=== PATIENT | male | born 1985 | race Hispanic/Latino ===

== ENCOUNTER 2019-05-27 10:40 | Inpatient (IN) ==
[2019-05-27] MEDS ORDERED: MOTRIN PO ONE (10:55)
--- NOTE | 2019-05-27 11:28 | PROVIDER DOCUMENTATION ---
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) Allergies/Adverse Reactions: Patient Allergies Allergy/AdvReac Type Severity Reaction Status Date / Time No Known Allergies Allergy Verified 05/27/19 13:28 Home Medications: Home Medication List Medication Instructions Recorded Confirmed Last Taken Type Acetaminophen [Tylenol] 650 mg PO Q6H PRN PRN #60 tab 05/27/19 Unknown Rx Azithromycin [Zithromax] 1 gm PO DAILY #1 packet 05/27/19 Unknown Rx Amoxicillin/Potassium Clav 1 ea PO BID 7 Days #14 tab 05/28/19 Unknown Rx [Augmentin 875-125 Tablet] - History of Present Illness-Resp Nature of Presenting Problem: This is a 33 yo male who presents with fever, chills, cough that started 3 days ago. 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 He denies any kn own sick contacts. Quality of Pain: reports: none Severity in ED: reports: moderate Onset/Duration: reports: 2 days ago Timing: reports: still present Context: denies: recent foreign travel, insect bite (possible tick) Exposure: denies: unknown cause, illness exposure Cough Quality/Degree: reports: mild, productive cough Episode Frequency: no prior episodes Current Respiratory Medication Therapy: Initiated none Modifying Factors: improves with: nothing Associated Symptoms: reports: cough, fever/chills, headache, muscle/bodyaches, shortness of breath Similar Symptoms Previously?: No Recently seen or treated by another doctor?: No Review of Systems - Adult - REVIEW OF SYSTEMS - ADULT Constitutional: reports: chills, fever Eyes: reports: no symptoms reported Ears, Nose, Mouth & Throat: reports: no symptoms reported, sinus problem (fulln ess). denies: ear discharge, ear pain, epistaxis, hoarseness, throat swelling Cardiovascular: reports: no symptoms reported. denies: chest pain, heart murmur, irregular heart rate, palpitations Respiratory: reports: no symptoms reported. denies: excessive sputum production, hemoptysis Gastrointestinal: reports: no symptoms reported. denies: abdominal pain, diarrhea, nausea, vomiting Genitourinary: reports: no symptoms reported Musculoskeletal: reports: no symptoms reported Integumentary: reports: no symptoms reported Neurological: reports: no symptoms reported Psychiatric: reports: no symptoms reported Endocrine: reports: no symptoms reported Hematologic/Lymphatic: reports: no symptoms reported Allergic/Immunologic: reports: no symptoms reported All Other Systems: Reviewed and Negative Past History - Adult - PAST MEDICAL HISTORY-ADULT Review of Records: reports: Old Records Reviewed, Nursing Assessment Review, Medications Reviewed, Social history reviewed & non-contributory. Major Childhood Illnesses: reports: denies history Cardiovascular: reports: denies history Respiratory: reports: denies history Gastrointestinal: reports: denies history Obstetrical/Gynecological: reports: denies history Genitourinary: reports: denies history Musculoskeletal: reports: denies history Neurological: reports: denies history Psychiatric: reports: denies history Endocrine/Immune: reports: denies history Other Conditions: reports: denies history Physical Exam-General - PHYSICAL EXAM-ADULT Initial Vital Signs Reviewed: Yes - CONSTITUTIONAL General Appearance: appears well, alert - EYES Eyes: PERRL/EOMI, pink conjunctivae - HEAD, EARS, NOSE, MOUTH & THROAT HENMT: normocephalic/atraumatic, moist mucous membranes, normal ENT inspection - NECK Neck: non-tender, supple - RESPIRATORY Respiratory: lungs clear, rhonchi - CARDIOVASCULAR Cardiovascular: normal peripheral pulses, regular rate, rhythm, no edema - GASTROINTESTINAL (ABDOMEN) Abdominal Exam: normal bowel sounds, non tender, soft, no organomegaly - MUSCULOSKELETAL Back Exam: no CVA tenderness, no vertebral tenderness Extremity: normal gait, no pedal edema - SKIN Integumentary: normal color, warm/dry - NEUROLOGIC Neurologic: grossly normal - PSYCHIATRIC Psych/Mental Status: normal mood/affect Progress - PLAN OF CARE/RESULTS Progress/Plan/Lab Results: Laboratory Results - last 24 hr 05/27/19 19:14 Plasma Lactate 1.4 Orders Category Date Time Status Admit - [facility] Routine AdmDCTranf 05/27/19 21:03 Active Activity - Up Ad Krystal ORDERED Care 05/27/19 21:03 Completed Cardiac Monitoring NOW Care 05/27/19 10:55 Completed IV Insertion NOW Care 05/27/19 10:55 Completed Intake and Output-Strict ORDERED Care 05/27/19 21:03 Completed Isolation [Isolation Precautions Setup] NOW Care 05/27/19 21:03 Completed NEWS Score >or=5:Order NEWS Bundle S.O. NOW Care 05/27/19 10:54 Completed Notify Provider of NEWS Score NOW Care 05/27/19 10:55 Completed Vital Signs Order Q 4-HR ASSESS Care 05/27/19 21:03 Completed Z-Document. for Tele Applied ORDERED Care 05/27/19 21:03 Completed Regular Diet Diet 05/27/19 18:41 Completed Regular Diet Diet 05/27/19 21:03 Completed CHEST-1 VIEW [RAD] Stat Exams 05/27/19 10:55 Completed A1C HGB W EST AVG GLUCOSE [CHEM] Stat Lab 05/27/19 11:10 Completed BASIC METABOLIC PANEL [CHEM] Routine Lab 05/28/19 06:25 Completed BLOOD CULTURE [BLDCUL] Stat Lab 05/27/19 11:14 Results CBC WITH DIFF [HEME] Routine Lab 05/28/19 06:25 Completed CBC WITH DIFF [HEME] Stat Lab 05/27/19 11:10 Completed CK PROFILE [SP CHEM] Stat Lab 05/27/19 11:10 Completed COMPREHENSIVE METABOLIC PANEL [CHEM] Stat Lab 05/27/19 11:10 Completed DIRECT STREP Stat Lab 05/27/19 11:42 Completed DIRECT STREP Stat Lab 05/27/19 18:26 Completed INFLUENZA SCREEN A/B Stat Lab 05/27/19 11:10 Completed LACTATE, PLASMA [CHEM] Lab 05/27/19 14:11 Completed LACTATE, PLASMA [CHEM] Lab 05/27/19 19:14 Completed LACTATE, PLASMA [CHEM] Q3H Lab 05/27/19 11:10 Completed PROTIME WITH INR [COAG] Stat Lab 05/27/19 11:10 Completed PTT [COAG] Stat Lab 05/27/19 11:10 Completed TROPONIN T HIGH SENSITIVITY Stat Lab 05/27/19 11:10 Completed URINALYSIS W/POSS RFLX CULT [URINALYSIS] Stat Lab 05/27/19 11:50 Completed URINE MANUAL MICROSCOPIC [URINALYSIS] Stat Lab 05/27/19 11:50 Completed 0.9% Sodium Chloride Inj [Ns] 1,000 ml Med 05/27/19 21:03 Discontinued IV 75 mls/hr 0.9% Sodium Chloride Inj [Ns] 1,000 ml Med 05/27/19 12:43 Discontinued IV 999 mls/hr Acetaminophen [Tylenol] Med 05/27/19 21:03 Discontinued 650 mg PO Q6H PRN PRN Amoxicillin/Pot Clavulanate [Augmentin] Med 05/27/19 17:58 Discontinued 500 mg PO NOW ONE Azithromycin 500 mg/Ns [Zithromax 500 mg/Ns] Med 05/27/19 21:03 Discontinued 500 mg in 250 ml IV Q24H CefTRIAXONE [Rocephin] 1 gm Med 05/27/19 14:00 Discontinued 0.9% Sodium Chloride Inj [Ns] 50 ml IV Q24H CefTRIAXONE [Rocephin] 1 gm Med 05/28/19 15:00 Discontinued 0.9% Sodium Chloride Inj [Ns] 50 ml IV Q24H Ibuprofen [Motrin] Med 05/27/19 10:55 Discontinued 800 mg PO NOW ONE Ondansetron [Zofran] Med 05/27/19 21:03 Discontinued 4 mg IV Q4H PRN PRN O2 Per Protocol Stat Oth 05/27/19 10:55 Active Telemetry [OM.EQ] Routine Oth 05/27/19 21:03 Active Transfer/Admit Order [TRANSFER] Routine Transfer 05/27/19 18:12 Completed Reviewed labs and pt exam with Dr Haile.WIll DC pt with Z pack Result Diagrams: 05/28/19 06:25 05/28/19 06:25 - REASSESSMENT Reassessment #1 Status: worsening (Temp increased to 103. Will admit) Departure - Departure Date of Disposition Decision: 05/27/19 Time of Disposition Decision: 16:17 DIAGNOSIS: Upper respiratory infection, viral, Coronavirus infection, unspecified Fever Qualifiers: Fever type: due to other condition Qualified Code(s): R50.81 - Fever presenting with conditions classified elsewhere Disposition: HOME 01 Certified Medical Emergency: Emergent Condition: Good - Critical Care Note This patient required my direct & personal management of CC.: Yes Total Time (mins): 55 Critical Care Statement: This patient required my direct personal management to treat or rule out processes, the absence of which, could potentiallly result in sudden, clinically significant life or limb threatening deterioration. Attestation - Physician/ [facility] Attestation Patient care was provided by Advanced Practice Provider:: Yes Advanced Practice Provider:: Katherin Rubio Advanced Practice Provider documentation review:: The Mid-level provider documentation, treatment plan and medical decision making was reviewed by the physician who agrees with all treatment and medical decision making by the MLP. The physician spent face to face time with patient:: No Advanced Practice Provider documentation review:: Supervising physician onsite and consulted in the evaluation and care of this patient. The physician did not have a face to face encounter with the patient.
[2019-05-27 11:30] LABS: BASO# 0.01 X1000 (0.0-0.2); BASO% 0.1 % (0.0-0.8); HEMATOCRIT 43.4 % (42.0-52.0); IMM GRAN# 0.12 X1000 (0.0-0.04); IMM GRAN% 0.7 % (0.0-0.5); LYMPH# 1.21 X1000 (1.2-3.4); LYMPH% 6.8 % (20.5-51.1); MCH 29.9 PG (27-31); MCHC 34.6 g/dL (33-37); MCV 86.6 FL (81-99); MONO# 1.67 X1000 (0.11-0.59); MONO% 9.4 % (1.7-9.3); MPV 10.2 FL (7.4-10.4); NEUT# 14.74 X1000 (1.4-6.5); PLT 201 X1000 (130-400); RBC 5.01 XMIL (4.7-6.1); RDW 13.7 % (11.5-14.5); WBC 17.75 X1000 (4.8-10.8)
[2019-05-27 11:41] LABS: INR 1.01; PROTIME 13.4 Seconds (11.0-16.0)
[2019-05-27 11:42] LABS: PTT 31.6 Seconds (22.3-41.8)
--- NOTE | 2019-05-27 11:46 | Diag Imaging Result Doc PS360 ---
EXAM: CHEST-1 VIEW INDICATION: cough TECHNIQUE: One view COMPARISON: None. FINDINGS: Inspiration is suboptimal. The lungs are grossly clear. There is no discrete pleural fluid collection or pneumothorax. The cardiomediastinal silhouette and central vasculature are grossly unremarkable. IMPRESSION: No evidence of acute pathology by plain radiograph. Electronically signed by Otilio Capone 05/27/2019 11:44 AM
[2019-05-27 11:54] LABS: URINE SOURCE CLEAN CATCH
[2019-05-27 12:02] LABS: BILIRUBIN URINE NEGATIVE (NEGATIVE); BLOOD URINE MODERATE (NEGATIVE); COLOR YELLOW; GLUCOSE URINE NEGATIVE (NEGATIVE); KETONE URINE 20 mg/dL (NEGATIVE); LEUKOCYTES URINE NEGATIVE (NEGATIVE); NITRITE URINE NEGATIVE (NEGATIVE); PH URINE 6.5; PROTEIN URINE 300 mg/dL (NEGATIVE); SP GRAVITY URINE 1.036; TURBIDITY URINE CLEAR (CLEAR); UROBILINOGEN URINE 4 mg/dL (NORMAL)
[2019-05-27 12:04] LABS: AGAP 16; ALB/GLOB RATIO 1.1; ALBUMIN 4.1 g/dL (3.5-5.0); ALKALINE PHOSPHATASE 77 U/L (32-122); BUN 11 mg/dL (8-22); CHLORIDE 97 mmol/L (98-107); CK PROFILE 126 U/L (24-204); COSMO 267; CREATININE 0.8 mg/dL (0.7-1.2); ESTIMATED GFR > 60; GLUCOSE 126 mg/dL (70-104); GOT 37 U/L (10-34); GPT 64 U/L (10-44); POTASSIUM 4.2 mmol/L (3.5-5.1); SODIUM 133 mmol/L (136-145); TCO2 20 mmol/L (25-35); TOTAL BILIRUBIN 0.51 mg/dL (0.20-1.00); TOTAL PROTEIN 7.9 g/dL (6.3-8.3)
[2019-05-27 12:10] LABS: UR EPITHELIAL CELLS <10 /HPF (<10); URINE BACTERIA NEGATIVE /HPF; URINE RBC <10 /HPF (<10); URINE WBC <10 /HPF (<10)
[2019-05-27 12:19] LABS: URINE CRYSTALS NONE SEEN; URINE YEAST NONE SEEN
[2019-05-27] MEDS ORDERED: NS 1,000 ML IV ONE (12:43)
[2019-05-27] MEDS ORDERED: ROCEPHIN 1 GM in NS 50 ML IV SCH ×2 (14:00→21:03)
[2019-05-27 17:46] LABS: HEMOGLOBIN A1C 5.2 % (4.8-6.0)
[2019-05-27] MEDS ORDERED: AUGMENTIN PO ONE (17:58)
--- NOTE | 2019-05-27 19:07 | HISTORY AND PHYSICAL ---
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 He states that for a couple days he has had symptoms but now he says he gets these type of symptoms as he has had trouble with his tonsils since he has been a young boy. His throat is sore. His tonsils do look like they are inflamed and he felt like he had some fever and indeed he had a temperature of 103 degrees on presentation here. He denies any other past medical history or surgical history. No known drug allergies. Denies any nausea, vomiting or GI symptoms. Denies productive cough. On his exam, his lungs are clear. He has no cervical, supraclavicular, axillary or femoral adenopathy. Conjunctiva unremarkable. His oropharynx is peritonsillar erythema and swelling. Abdomen is soft. Skin is warm and dry. Neck is supple. VITAL SIGNS: Temperature was 103 degrees, pulse 115, respirations 16, blood pressure 140/88. Pupils are equal and round. Neck is supple. Height 5 feet 5 inches, weight 180 pounds. LAB: White count 17,750, hematocrit 43, platelet count 201,000. Sodium 133, potassium 4.2, chloride 97, BUN 11, creatinine 0.8, blood sugar 126. Hemoglobin A1c is 5.2. Liver functions unremarkable. Pro time 13.4, PTT is 31. Urinalysis unremarkable and his chest x-ray, no evidence of any infiltrates or pathology. ASSESSMENT/PLAN: I suspect he has got a tonsillitis. We will give him some Rocephin. We will admit him for observation. I think he has concern that his symptoms could be coronavirus so we will get swabs and send for influenza and leija but I do not think he has a viral. I think this is more consistent with tonsillitis and so will give him ceftriaxone 1 g q.24 hours, he is on Motrin, give him some normal saline. 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 I did explain that the results of the coronavirus will not be back probably till Wednesday. Clinically low suspicion for coronavirus but want him to take precautions and probably need to wear a mask but will plan on admitting him and observing him overnight. cc: Roque Sullivan MD
[2019-05-27] MEDS ORDERED: ZOFRAN IV PRN (21:03)
[2019-05-27] MEDS ORDERED: ZITHROMAX 500 MG/NS 500 MG/250 ML IVPB IV SCH (21:03)
[2019-05-27] MEDS ORDERED: NS 1,000 ML IV SCH (21:03)
[2019-05-28] MEDS: TYLENOL PO PRN ×2 (01:22→09:56)
[2019-05-28 07:09] LABS: BASO# 0.01 X1000 (0.0-0.2); BASO% 0.1 % (0.0-0.8); EOS# 0.01 X1000 (0.0-0.7); EOS% 0.1 % (0.0-10.0); HEMATOCRIT 41.8 % (42.0-52.0); HEMOGLOBIN 14.1 g/dL (14.0-18.0); IMM GRAN# 0.03 X1000 (0.0-0.04); IMM GRAN% 0.2 % (0.0-0.5); LYMPH# 2.23 X1000 (1.2-3.4); LYMPH% 18.4 % (20.5-51.1); MCH 29.6 PG (27-31); MCHC 33.7 g/dL (33-37); MCV 87.6 FL (81-99); MONO# 2.03 X1000 (0.11-0.59); MONO% 16.8 % (1.7-9.3); MPV 10.7 FL (7.4-10.4); NEUT# 7.79 X1000 (1.4-6.5); NEUT% 64.4 % (42.2-75.2); PLT 203 X1000 (130-400); RBC 4.77 XMIL (4.7-6.1); RDW 13.7 % (11.5-14.5)
[2019-05-28 07:21] LABS: AGAP 12; BUN 11 mg/dL (8-22); CALCIUM 8.7 mg/dL (8.8-10.2); CHLORIDE 102 mmol/L (98-107); COSMO 276; CREATININE 0.8 mg/dL (0.7-1.2); ESTIMATED GFR > 60; GLUCOSE 122 mg/dL (70-104); POTASSIUM 3.4 mmol/L (3.5-5.1); SODIUM 138 mmol/L (136-145); TCO2 24 mmol/L (25-35)
[2019-05-28 08:26] VITALS: BP 115/64
--- NOTE | 2019-05-28 09:09 | DISCHARGE SUMMARY ---
ADMISSION DATE: 05/27/2019 DISCHARGE DATE: Mr. Macedo was admitted yesterday, and it appears that he has some swollen tonsils. He was concerned that he might have contracted a viral upper respiratory tract infection, and of concern was the coronavirus. We did test him for it. I think he could have an additional viral upper respiratory tract infection, but he did have swollen tonsils and a long history of having tonsillitis since he was a child. He felt good. No respiratory complaints. He did have a little elevated white count, but otherwise his lab was unremarkable. The following morning, the white count was 12,100. He would like to go home. I am going to let him go home on Augmentin 875 mg twice a day for 7 days, and he will follow up with his primary care physician. We did send off test for coronavirus and for influenza, and his group A strep was negative, rapid strep antigen was negative, and influenza was negative for A and B. cc: Roque Sullivan MD
[2019-05-28] MEDS ORDERED: ROCEPHIN 1 GM in NS 50 ML IV SCH (15:00)
== END 2019-05-28 11:59 | disposition home or self-care (01) | DRG 153 ==
LOC: ED 10:40 → 3N 23:57
PROVIDERS: ATTEND Emergency Medicine